=== PATIENT | male | born 1980 | race Caucasian/White ===

== ENCOUNTER 2018-04-30 13:47 | Emergency (ER) | payer BC ==
[2018-04-30 14:07] VITALS: BP 147/78
[2018-04-30] MEDS ORDERED: LORazepam 2 MG/ML SDV IVPUSH ONE (14:33)
[2018-04-30] MEDS ORDERED: Ondansetron 4 MG/2 ML SDV IVPUSH ONE (14:33)
[2018-04-30] MEDS ORDERED: Meclizine 12.5 MG Tab PO ONE (14:33)
[2018-04-30] MEDS ORDERED: Sodium Chloride 0.9% 1,000 ML IV ONE (14:33)
--- NOTE | 2018-04-30 14:55 | EDM.PDOC ---
ED HPI GENERAL MEDICAL PROBLEM - General Chief Complaint: Neuro Symptoms/Deficits Stated Complaint: DIZZINESS Time Seen by Provider: 04/30/18 14:13 Source of Information: Reports: Patient History Limitations: Reports: No Limitations - History of Present Illness INITIAL COMMENTS - FREE TEXT/NARRATIVE: Patient is a 38-year-old male presents ED complaining of dizziness for the past few days. Dizziness is constant. Worsened with movement. For instance patient returned back to work today after being off for few days. States with any movement his dizziness gets worse. The symptoms wax and wane with intensity. At no time has he felt like he is going to pass out. He has this pressure like sensation to his head described as mild in nature. There has been no recent trauma, sinus congestion, runny nose, ear pain, fever, sore throat, and may have precipitated these symptoms. In addition he denies any vision changes or any focal neurological deficits. He's had symptoms like this in the past that usually resolves quickly. These symptoms have persisted. He does not feel dehydrated. At times the room appears to be spinning when symptoms at their worse. Usually resolve with closing his eyes and sitting still. He has no history of BPV. Currently the dizziness is very mild in nature. States he feels weak as well. He is mildly nauseated with admission to the ED. He denies any fever, chest pain, shortness breath, palpitations, irregular heartbeat, dull pain, dysuria, increased frequency or urination, increased thirst, recent weight loss, alcohol or drug use, dark or bloody stool, and/or any additional complaints. Patient has a history of low T and is currently on testosterone. Surgical history noncontributory. PCP is Dr. Hoffman. Headache Pain Score (Numeric/FACES): 6 - Related Data Allergies Allergy/AdvReac Type Severity Reaction Status Date / Time No Known Allergies Allergy Verified 03/06/15 00:04 Home Meds: Home Meds Meclizine [Antivert] 25 mg PO TID PRN #15 tab 04/30/18 [Rx] Testosterone Enanthate 300 mg IM ASDIRECTED 04/30/18 [History] Past Medical History Other Dermatologic History: chronic athletes foot; exacerbations - Past Surgical History HEENT Surgical History: Reports: Adenoidectomy, Tonsillectomy Social & Family History - Tobacco Use Smoking Status *Q: Current Every Day Smoker Years of Tobacco use: 17 Packs/Tins Daily: 0.5 - Caffeine Use Caffeine Use: Reports: Energy Drinks - Recreational Drug Use Recreational Drug Use: No ED ROS GENERAL - Review of Systems Review Of Systems: ROS reveals no pertinent complaints other than HPI. ED EXAM, DIZZINESS - Physical Exam Exam: See Below Exam Limited By: No Limitations General Appearance: Alert, WD/WN, No Apparent Distress Nystagmus: No: worsens with head to L, worsens with head to R, reproducible, reversible, constant, short duration Ears: Normal External Exam, Normal Canal, Hearing Grossly Normal, Normal TMs Nose: Normal Inspection, Normal Mucosa, No Blood Throat/Mouth: Normal Inspection, Normal Oropharynx, Normal Voice, No Airway Compromise Head Exam: Atraumatic, Normocephalic Neck: Normal Inspection, Supple, Non-Tender, Full Range of Motion. No: Carotid Bruit, Lymphadenopathy (L), Lymphadenopathy (R) Respiratory/Chest: No Respiratory Distress, Lungs Clear, Normal Breath Sounds, No Accessory Muscle Use, Chest Non-Tender Cardiovascular: Normal Peripheral Pulses, Regular Rate, Rhythm, No Murmur GI/Abdominal: Normal Bowel Sounds, Soft, Non-Tender, No Organomegaly, No Distention Neurological: Alert, Normal Mood/Affect, Normal Dorsiflexion, CN II-XII Intact, Normal Plantar Flexion, Normal Gait, No Motor/Sensory Deficits, Oriented x 3, Other (Patient has no slurred speech, tongue deviation, or difficulty swallowing. No weakness discrepancies to the upper and lower extremities. Finger to nose and rapid alternating movements are intact.) Back Exam: Normal Inspection Extremities: Normal Inspection, Normal Range of Motion, Non-Tender Psychiatric: Normal Affect, Normal Mood Skin Exam: Warm, Dry, Intact, Normal Color, No Rash Course - Vital Signs Last Recorded V/S: Last Vital Signs Temp 98.7 F 04/30/18 14:05 Pulse 94 04/30/18 14:05 Resp 20 04/30/18 14:05 BP 147/78 H 04/30/18 14:05 Pulse Ox 100 04/30/18 14:05 Orthostatic Blood Pressure [ 146/90 Standing] Orthostatic Blood Pressure [ 134/78 Sitting] Orthostatic Blood Pressure [ 139/74 Supine] - Orders/Labs/Meds Orders: Active Orders 24 hr Category Date Time Status EKG 12 Lead [EKG Documentation Completion] [RC] STAT Care 04/30/18 14:33 Active Orthostatic Vital Signs [RC] ASDIRECTED Care 04/30/18 14:33 Active Labs: Laboratory Tests 04/30/18 04/30/18 04/30/18 Range/Units 14:55 14:55 14:55 WBC 9.30 H (4.23-9.07) K/mm3 RBC 5.78 (4.63-6.08) M/mm3 Hgb 16.9 (13.7-17.5) gm/L Hct 50.3 (40.1-51.0) % MCV 87.0 (79.0-92.2) fl MCH 29.2 (25.7-32.2) pg MCHC 33.6 (32.2-35.5) g/dl RDW Std Deviation 41.5 (35.1-43.9) fL Plt Count 347 H (163-337) K/mm3 MPV 9.7 (9.4-12.3) fl Neutrophils % (Manual) 81 H (40-60) % Band Neutrophils % 0 (0-10) % Lymphocytes % (Manual) 18 L (20-40) % Atypical Lymphs % 0 % Monocytes % (Manual) 1 L (2-10) % Eosinophils % (Manual) 0 L (0.8-7.0) % Basophils % (Manual) 0 L (0.2-1.2) Platelet Estimate Adequate RBC Morph Comment Normal Sodium 142 (136-145) mEq/L Potassium 3.7 (3.5-5.1) mEq/L Chloride 103 (98-107) mEq/L Carbon Dioxide 27 (21-32) mEq/L Anion Gap 15.7 H (5-15) BUN 14 (7-18) mg/dL Creatinine 1.2 (0.7-1.3) mg/dL Est Cr Clr Drug Dosing 90.64 mL/min Estimated GFR (MDRD) > 60 (>60) mL/min BUN/Creatinine Ratio 11.7 L (14-18) Glucose 93 (74-106) mg/dL Calcium 9.4 (8.5-10.1) mg/dL Total Bilirubin 0.5 (0.2-1.0) mg/dL AST 30 (15-37) U/L ALT 60 (16-63) U/L Alkaline Phosphatase 47 (46-116) U/L Troponin I < 0.017 (0.00-0.056) ng/mL C-Reactive Protein < 0.2 (<1.0) mg/dL Total Protein 7.6 (6.4-8.2) g/dl Albumin 4.3 (3.4-5.0) g/dl Globulin 3.3 gm/dL Albumin/Globulin Ratio 1.3 (1-2) TSH 3rd Generation 1.998 (0.358-3.74) uIU/mL Urine Color (Yellow) Urine Appearance (Clear) Urine pH (5.0-8.0) Ur Specific [place] (1.005-1.030) Urine Protein (Negative) Urine Glucose (UA) (Negative) Urine Ketones (Negative) Urine Occult Blood (Negative) Urine Nitrite (Negative) Urine Bilirubin (Negative) Urine Urobilinogen (0.2-1.0) Ur Leukocyte Esterase (Negative) Urine RBC (0-5) /hpf Urine WBC (0-5) /hpf Ur Epithelial Cells (0-5) /hpf Urine Bacteria (FEW) /hpf Urine Mucus (FEW) /hpf Urine Opiates Screen (MYWRPN=889) Ur Buprenorphine Scrn (CUTOFF=10) Ur Oxycodone Screen (IJI9ZL=709) Urine Methadone Screen (CXG1ZF=710) Ur Propoxyphene Screen (TLUPRI=083) Ur Barbiturates Screen (HFXYUY=664) Ur Tricyclics Screen (ISTSLO=031) Ur Phencyclidine Scrn (CUTOFF=25) Ur Amphetamine Screen (WYICGH=752) U Methamphetamines Scrn (MKPQOO=601) U Benzodiazepines Scrn (MFGUAF=648) U Cocaine Metab Screen (EVRVPL=328) U Marijuana (THC) Screen (CUTOFF=50) 04/30/18 04/30/18 Range/Units 15:20 15:20 WBC (4.23-9.07) K/mm3 RBC (4.63-6.08) M/mm3 Hgb (13.7-17.5) gm/L Hct (40.1-51.0) % MCV (79.0-92.2) fl MCH (25.7-32.2) pg MCHC (32.2-35.5) g/dl RDW Std Deviation (35.1-43.9) fL Plt Count (163-337) K/mm3 MPV (9.4-12.3) fl Neutrophils % (Manual) (40-60) % Band Neutrophils % (0-10) % Lymphocytes % (Manual) (20-40) % Atypical Lymphs % % Monocytes % (Manual) (2-10) % Eosinophils % (Manual) (0.8-7.0) % Basophils % (Manual) (0.2-1.2) Platelet Estimate RBC Morph Comment Sodium (136-145) mEq/L Potassium (3.5-5.1) mEq/L Chloride (98-107) mEq/L Carbon Dioxide (21-32) mEq/L Anion Gap (5-15) BUN (7-18) mg/dL Creatinine (0.7-1.3) mg/dL Est Cr Clr Drug Dosing mL/min Estimated GFR (MDRD) (>60) mL/min BUN/Creatinine Ratio (14-18) Glucose (74-106) mg/dL Calcium (8.5-10.1) mg/dL Total Bilirubin (0.2-1.0) mg/dL AST (15-37) U/L ALT (16-63) U/L Alkaline Phosphatase (46-116) U/L Troponin I (0.00-0.056) ng/mL C-Reactive Protein (<1.0) mg/dL Total Protein (6.4-8.2) g/dl Albumin (3.4-5.0) g/dl Globulin gm/dL Albumin/Globulin Ratio (1-2) TSH 3rd Generation (0.358-3.74) uIU/mL Urine Color Yellow (Yellow) Urine Appearance Clear (Clear) Urine pH 7.5 (5.0-8.0) Ur Specific [place] 1.015 (1.005-1.030) Urine Protein Negative (Negative) Urine Glucose (UA) Negative (Negative) Urine Ketones Negative (Negative) Urine Occult Blood Negative (Negative) Urine Nitrite Negative (Negative) Urine Bilirubin Negative (Negative) Urine Urobilinogen 0.2 (0.2-1.0) Ur Leukocyte Esterase Negative (Negative) Urine RBC 0-5 (0-5) /hpf Urine WBC 0-5 (0-5) /hpf Ur Epithelial Cells 0-5 (0-5) /hpf Urine Bacteria Few (FEW) /hpf Urine Mucus Not seen (FEW) /hpf Urine Opiates Screen Negative (ATBJBK=616) Ur Buprenorphine Scrn Negative (CUTOFF=10) Ur Oxycodone Screen Negative (ZZU3ZX=802) Urine Methadone Screen Negative (HHB3WB=964) Ur Propoxyphene Screen Negative (KEVLKT=621) Ur Barbiturates Screen Negative (KLJQPE=396) Ur Tricyclics Screen Negative (IKQGGU=549) Ur Phencyclidine Scrn Negative (CUTOFF=25) Ur Amphetamine Screen Negative (VSZZUL=334) U Methamphetamines Scrn Negative (QXKDMD=586) U Benzodiazepines Scrn Negative (FCUPSN=910) U Cocaine Metab Screen Negative (RFAECL=985) U Marijuana (THC) Screen Negative (CUTOFF=50) Meds: Medications Discontinued Medications Generic Name Dose Route Start Last Admin Trade Name Freq PRN Reason Stop Dose Admin Sodium Chloride 1,000 mls @ 999 mls/hr 04/30/18 14:33 04/30/18 15:04 Normal Saline IV 04/30/18 15:33 999 mls/hr ONETIME ONE Administration Lorazepam 0.5 mg 04/30/18 14:33 04/30/18 15:06 Ativan IVPUSH 04/30/18 14:34 0.5 mg ONETIME ONE Administration Meclizine HCl 12.5 mg 04/30/18 14:33 04/30/18 15:06 Antivert PO 04/30/18 14:34 12.5 mg ONETIME ONE Administration Ondansetron HCl 4 mg 04/30/18 14:33 04/30/18 15:04 Zofran IVPUSH 04/30/18 14:34 4 mg ONETIME ONE Administration - Re-Assessments/Exams Free Text/Narrative Re-Assessment/Exam: IV established with normal saline, meclizine, and low-dose Ativan. Orthostatic vital signs will be obtained along with a chest x-ray and EKG. CBC, chem 14, CRP , troponin, urine drug screen, TSH and UA have been ordered as well. On exam patient is mildly dizzy. There is no vertical nystagmus. Only minimal horizontal. No focal neurological deficits noted. Patient's gait was normal with ambulation to the exam room. Vital signs are stable. Initial labs and studies include: CBC, chem 14, CRP, urine drug screen, TSH, UA , chest x-ray one view, EKG, and orthostatic vitals. EKG sinus rhythm at rate of 75 with inverted T waves in lead 23 and aVF. No septal changes noted. No previous EKG to compare with. Reviewed with Dr. [place]. Labs reviewed: CBC and chemistry panel were essentially normal. CRP negative. UA negative. Urine drug screen negative as well. 1635 on reevaluation patient states he is feeling much better. Dizziness has completely resolved. He has been up and about walking to the bathroom with no difficulties. He is ready be discharged home. Return precautions discussed with the patient. I suspect patient has mild case of BPV thus will be discharged home with meclizine. He will follow up with PCP this coming week. I instructed the patient to push the fluids and ensure adequate rest. Patient had no further questions or concerns. Troponin was negative. Departure - Departure Time of Disposition: 17:00 Disposition: Home, Self-Care 01 Condition: Good Clinical Impression: BPV (benign positional vertigo) Qualifiers: Laterality: unspecified laterality Qualified Code(s): H81.10 - Benign paroxysmal vertigo, unspecified ear - Discharge Information Prescriptions: Meclizine [Antivert] 25 mg PO TID PRN #15 tab PRN Reason: Dizziness Instructions: Benign Positional Vertigo, Dizziness, [id number] Referrals: Claudio Hoffman Jr, MD [Primary Care Provider] - Forms: ED Department Discharge, ED Return to Work/School Form Additional Instructions: No driving today since receiving a sedative medication. Take the meclizine as prescribed. You can take 12.5 mg to 25 mgs x 3 times a day as needed. You will need to split the meclizine tab to do so at the decreased amount. Do not drive if feeling sedated while taking meclizine. Push the fluids. Utilize Tylenol or ibuprofen in alternating fashion for headache. Please follow up with PCP this coming week for reevaluation. Return to the ED if you develop any new or worsening symptoms. - My Orders Last 24 Hours: My Active Orders 04/30/18 14:33 EKG 12 Lead [EKG Documentation Completion] [RC] STAT Orthostatic Vital Signs [RC] ASDIRECTED - Assessment/Plan Last 24 Hours: My Active Orders 04/30/18 14:33 EKG 12 Lead [EKG Documentation Completion] [RC] STAT Orthostatic Vital Signs [RC] ASDIRECTED
--- NOTE | 2018-04-30 15:02 | CR ---
Chest: Portable view of the chest was obtained. Comparison: No prior chest x-ray. Heart size and mediastinum are normal. Lungs are clear. Bony structures are grossly intact. Impression: 1. Nothing acute is seen on portable chest x-ray. Diagnostic code #1
== END 2018-04-30 17:45 | disposition home or self-care (01) ==
LOC: JD.ED 13:47
DX: H81.10 Benign paroxysmal vertigo, unspecified ear (principal); F17.210 Nicotine dependence, cigarettes, uncomplicated
CPT/HCPCS: 36415; 71045; 80053; 80306; 81001; 84443; 84484; 85007; 85027; 86140; 93005; 96361; 96374; 96375; 99284; A9270; J2060; J2405; J7040

== ENCOUNTER 2018-07-05 03:18 | Emergency (ER) | payer BC ==
[2018-07-05 03:28] VITALS: BP 131/80
--- NOTE | 2018-07-05 03:40 | EDM.PDOC ---
ED HPI GENERAL MEDICAL PROBLEM - General Chief Complaint: ENT Problem Stated Complaint: SORE THROAT GLANDS SWOLLEN Time Seen by Provider: 07/05/18 03:30 Source of Information: Reports: Patient History Limitations: Reports: No Limitations - History of Present Illness INITIAL COMMENTS - FREE TEXT/NARRATIVE: 38-year-old male presents to the ED for evaluation of painful swelling in the right side of his neck. He appreciated this about 4 days ago and it seems to be getting more painful. Has a mild sore throat. No dental pain. Has had previous tonsillectomy and adenoidectomy at age 24. Patient is quite anxious about having cancer since his was diagnosed with malignant melanoma. He can pinpoint the swelling and is quite tender. It is at the angle of His right mandible. No associated fever or chills. Nobody else at home is ill at this time. He works in [employer]. Never shares eating or drinking utensils. Onset: Gradual Onset Date: 07/02/18 Duration: Day(s):, Getting Worse Location: Reports: Neck (Right anterior superior neck pain at the angle of his mandible) Quality: Reports: Ache, Other (Multilevel painful nodule right) Severity: Moderate (superior neck) Improves with: Reports: None Worsens with: Reports: None Context: Denies: Activity, Exercise, Lifting, Sick Contact, Trauma, Other Associated Symptoms: Reports: Other (Perhaps mild sore throat.) Treatments STRETCH BOX TENDER: Reports: Other (see below) (He has not taken any pain medication.) Right Throat Pain Score (Numeric/FACES): 3 - Related Data Allergies Allergy/AdvReac Type Severity Reaction Status Date / Time No Known Allergies Allergy Verified 07/05/18 03:28 Home Meds: Home Meds Meclizine [Antivert] 25 mg PO TID PRN #15 tab 04/30/18 [Rx] Testosterone Enanthate 300 mg IM ASDIRECTED 04/30/18 [History] Doxycycline [Vibramycin] 100 mg PO BID #20 cap 07/05/18 [Rx] Past Medical History Other Dermatologic History: chronic athletes foot; exacerbations - Past Surgical History HEENT Surgical History: Reports: Adenoidectomy, Tonsillectomy Social & Family History - Tobacco Use Smoking Status *Q: Former Smoker Used Tobacco, but Quit: Yes Month/Year Tobacco Last Used: 2019 - Caffeine Use Caffeine Use: Reports: Coffee, Soda - Recreational Drug Use Recreational Drug Use: No - Living Situation & Occupation Living situation: Reports: Occupation: Employed ED ROS ENT - Review of Systems Review Of Systems: See Below Constitutional: Reports: Decreased Appetite. Denies: Fever, Chills, Malaise, Weakness, Fatigue, Weight Loss HEENT: Reports: Throat Pain (Pain in his lower throat), Other (Pain right lateral neck) Respiratory: Reports: Other (Perhaps mildly more short of breath of normal.) Cardiovascular: Reports: No Symptoms Endocrine: Reports: No Symptoms GI/Abdominal: Reports: No Symptoms : Reports: No Symptoms Musculoskeletal: Reports: No Symptoms Skin: Reports: No Symptoms Neurological: Reports: No Symptoms Psychiatric: Reports: No Symptoms Hematologic/Lymphatic: Reports: Swollen Glands (Feels a swollen gland in the right side of his neck) Immunologic: Reports: No Symptoms ( 4 days) ED EXAM, ENT - Physical Exam Exam: See Below Exam Limited By: No Limitations General Appearance: Alert, WD/WN, Anxious, Moderate Distress (Anxious about medical problems) Eye Exam: Bilateral Eye: Normal Inspection Mouth/Throat: Normal Inspection, Normal Gums, Normal Lips, Normal Teeth, Other ( For the mouth is normal as well. Oropharyngeal swelling is evident.) Head: Atraumatic, Normocephalic Neck: Normal Inspection, Supple, Non-Tender, Full Range of Motion, Lymphadenopathy (R) (Patient has a tender mobile lymph node superior anterior chain anterior to the sternocleidomastoid muscle just inferior to the angle of his mandible on the right side. No other lymphadenopathy appreciated in the posterior chain or anterior chain or on the floor the mouth such as a submandibular or submental nodes. Normal laryngeal crepitus. Thyroid gland is barely palpable with no nodules evident. There is no supraclavicular or infraclavicular adenopathy.) Respiratory/Chest: No Respiratory Distress, Lungs Clear, Normal Breath Sounds, Other Cardiovascular: Normal Peripheral Pulses (Assessment 100% on room air.), Regular Rate, Rhythm, No Edema, No Gallop, No Murmur, No Rub Course - Vital Signs Last Recorded V/S: Last Vital Signs Temp 37.0 C 07/05/18 03:25 Pulse 65 07/05/18 03:25 Resp 18 07/05/18 03:25 BP 131/80 07/05/18 03:25 Pulse Ox 100 05/20/19 03:25 - Orders/Labs/Meds Meds: Medications Discontinued Medications Generic Name Dose Route Start Last Admin Trade Name Ginny PRN Reason Stop Dose Admin Doxycycline Hyclate 200 mg 07/05/18 03:43 Vibramycin PO 07/05/18 03:44 ONETIME ONE - Radiology Interpretation Free Text/Narrative:: 38-year-old male presents the ED for evaluation of painful lump in the right side of his neck 4 days. He indicates this is making him very anxious since his was diagnosed with malignant melanoma a few years ago. He states his throat is been mildly sore. No fever no chills. Examination reveals a well localized tender lymph node superiorly in the anterior chain on the right side. This is just inferior to the angle of his right mandible. It is mobile and 1.2 cm in size and moderately tender. No other lymphadenopathy identified in the posterior anterior chain or floor the mouth or neck. Patient reassured at this time no signs of cancer. Advise cancer doesn't hurt. He has lymphadenitis of unclear etiology likely from infected hair follicle in [place] area in the past. Treated with doxycycline 100 mg twice a day for the next 10 days. Follow-up if not markedly improved in 10 days' time or sooner if it seems to be enlarging. Departure - Departure Time of Disposition: 03:43 Disposition: Home, Self-Care 01 Condition: Fair Clinical Impression: Acute lymphadenitis of neck - Discharge Information *PRESCRIPTION DRUG MONITORING PROGRAM REVIEWED*: Not Applicable *COPY OF PRESCRIPTION DRUG MONITORING REPORT IN PATIENT YUSEF: Not Applicable Prescriptions: Doxycycline [Vibramycin] 100 mg PO BID #20 cap Referrals: Claudio Hoffman Jr, MD [Primary Care Provider] - Forms: ED Department Discharge Additional Instructions: Evaluation the emergency room this morning in regards to a painful nodule at the base of the angle of your right mandible or jaw. As you indicated is been present and notable for the last 4 days. Previous tonsillectomy and adenoidectomy. Inspection of the oral cavity shows no active infection. Teeth appear to be in good shape. No obvious infection of the submandibular glands under the chin for the mouth. There is very marked tenderness and slight swelling of one of the upper anterior chain lymph nodes adjacent to the sternocleidomastoid muscle. The cause of this inflammation of the gland is unclear. It can often be from an infected hair follicle etc. This may have occurred even several weeks ago and now causing a low-grade inflammation or infection in the lymph node itself. Treatment is antibiotic doxycycline 100 mg twice daily for the next 10 days. You should note improvement in pain over the next 3 days. Continue to monitor for growth. If it appears like it is growing or enlarging substantially over the next 10 days then you should be seen again. May use Motrin 600 mg every 6 hours if needed to reduce pain and inflammation.
[2018-07-05] MEDS ORDERED: Doxycycline 100 MG Cap PO ONE (03:43)
== END 2018-07-05 04:08 | disposition home or self-care (01) ==
LOC: JD.ED 03:18
DX: L04.0 Acute lymphadenitis of face, head and neck (principal); Z87.891 Personal history of nicotine dependence; Z79.899 Other long term (current) drug therapy
CPT/HCPCS: 99282; A9270; 99283